=== PATIENT | male | born 1950 | race Caucasian/White ===

== ENCOUNTER 2021-06-05 23:21 | Emergency (ER) | payer OTHER, SELFPAY ==
[2021-06-05 23:26] VITALS: BP 154/63; PULSE 53; RESP 16; TEMP 36.2; O2SAT 99
[2021-06-05 23:38] LABS: Glucose Point of Care 123 mg/dl (65-105)
--- NOTE | 2021-06-06 00:30 | PC.NURSE ---
pt eating peanut butter and crackers and apple juice at this time to stabilize blood sugar.
[2021-06-06 00:39] LABS: Basophils Absolute Auto 0.1 K/mm3 (0.0-0.1); Basophils Percent Auto 0.4 % (0.2-1.2); Eosinophils Absolute Auto 0.1 K/mm3 (0-0.3); Eosinophils Percent Auto 0.5 % (0-4.4); Hemoglobin 11.8 g/dL (14.0-18.0); Immature Granulocyte Absolute 0.22 K/mm3 (0.00-0.031); Immature Granulocyte Percent A 1.3 % (0-0.5); Lymphocytes Absolute Auto 1.71 K/mm3 (0.9-3.2); Lymphocytes Percent Auto 10.2 % (18.3-44.2); Mean Corpuscular HGB Conc 31.9 g/dl (32-36); Mean Corpuscular Hemoglobin 29.1 pg (26-34); Mean Corpuscular Volume 91.4 fl (80-100); Mean Platelet Volume 8.9 fl (7.4-10.4); Monocytes Absolute Auto 0.8 K/mm3 (0.1-0.6); Monocytes Percent Auto 4.5 % (2.6-8.5); Neutrophils Percent Auto 83.1 % (45.5-73.1); Platelet Count Result 315 k/mm3 (150-375); Red Blood Count 4.05 M/mm3 (4.6-6.20); Red Cell Distribution Width 13.4 % (11.5-14.5); White Blood Count 16.8 K/mm3 (4.5-10.0)
--- NOTE | 2021-06-06 00:42 | ED.GENADULT ---
HPI - General Adult General Chief complaint: Recheck/Abnormal Lab/Rx Stated complaint: hypoglycemia Time Seen by Provider: 06/05/21 23:30 History of Present Illness HPI narrative: Patient 71-year-old gentleman who presents the emergency department with chief complaint of hypoglycemia. Patient reports he has history of diabetes and was just discharged from the [facility] the patient was given a dose of insulin prior to leaving and did not eat. The patient went home and the family was getting some food for him to eat and by the time he got back with the food the patient had become minimally responsive and blood sugar was and the 40s. The patient was given p.o. glucose and the patient was still not waking up and his blood sugar was in the 60s and 70s the patient was given glucagon by EMS and the patient regained consciousness and his blood sugar was in the 120s. The patient was brought to the emergency department for close observation patient currently has no other complaints. Review of Systems Review of Systems: Narrative: A 10 system review of systems was completed on the patient and is negative except for what is stated in the HPI. Nursing and ancillary documentation was reviewed. PMFSH Comments Patient has past medical history significant for diabetes Recent urinary tract infection and hospitalization. Social history the patient lives at home with his son and his son's family Exam Narrative: Exam Narrative: GENERAL: Well-appearing, well-nourished, and in no acute distress. HEAD: Normocephalic, atraumatic. EYES: PERRLA and EOMI. ENT: Nares clear, no rhinorrhea or epistaxis. Mucous membranes moist. NECK: Supple. CHEST: Clear to auscultation. No respiratory distress. HEART: Regular rate and rhythm. No murmur heard. Normal peripheral pulses. ABDOMEN: Soft, nontender, nondistended, normal active bowel sounds. EXTREMITIES: Normal range of motion. No edema. SKIN: Warm, dry, no rash. NEURO: No focal deficits. Alert and oriented x3. PSYCH: Normal mood and affect. Course Vital Signs Vital signs: Vital Signs Temperature 36.2 C L 06/05/21 23:26 Pulse Rate 53 L 06/05/21 23:26 Respiratory Rate 16 06/05/21 23:26 Blood Pressure 154/63 H 06/05/21 23:26 Pulse Oximetry 99 06/05/21 23:26 Temperature 36.2 C L 06/05/21 23:26 Pulse Rate 53 L 06/05/21 23:26 Respiratory Rate 16 06/05/21 23:26 Blood Pressure 154/63 H 06/05/21 23:26 Pulse Oximetry 99 06/05/21 23:26 Medical Decision Making Vital Signs Vital Signs: Vital Signs Temperature 36.2 C L 06/05/21 23:26 Pulse Rate 53 L 06/05/21 23:26 Respiratory Rate 16 06/05/21 23:26 Blood Pressure 154/63 H 06/05/21 23:26 Pulse Oximetry 99 06/05/21 23:26 Temperature 36.2 C L 06/05/21 23:26 Pulse Rate 53 L 06/05/21 23:26 Respiratory Rate 16 06/05/21 23:26 Blood Pressure 154/63 H 06/05/21 23:26 Pulse Oximetry 99 06/05/21 23:26 Lab Data Result diagrams: 06/06/21 00:28 06/06/21 00:28 Labs: Lab Results 06/05/21 06/06/21 06/06/21 Range/Units 23:36 00:28 00:28 WBC 16.8 H (4.5-10.0) K/mm3 RBC 4.05 L (4.6-6.20) M/mm3 Hgb 11.8 L (14.0-18.0) g/dL Hct 37.0 L (42.0-52.0) % MCV 91.4 (80-100) fl MCH 29.1 (26-34) pg MCHC 31.9 L (32-36) g/dl RDW 13.4 (11.5-14.5) % Plt Count 315 (150-375) k/mm3 MPV 8.9 (7.4-10.4) fl Immature Gran % (Auto) 1.3 H (0-0.5) % Neut % (Auto) 83.1 H (45.5-73.1) % Lymph % (Auto) 10.2 L (18.3-44.2) % Clark % (Auto) 4.5 (2.6-8.5) % Eos % (Auto) 0.5 (0-4.4) % Baso % (Auto) 0.4 (0.2-1.2) % Lymph # (Auto) 1.71 (0.9-3.2) K/mm3 Clark # (Auto) 0.8 H (0.1-0.6) K/mm3 Eos # (Auto) 0.1 (0-0.3) K/mm3 Baso # (Auto) 0.1 (0.0-0.1) K/mm3 Abs Immat Gran (auto) 0.22 H (0.00-0.031) K/mm3 Absolute Neuts (auto) 14.0 H (1.3-6.7) K/mm3 Absolute Nucleated RBC 0.0 (0.0-0.012) K/mm3 Nucleate
[2021-06-06 00:53] LABS: Alanine Aminotransferase 28 U/L (4-50); Albumin Level 3.8 g/dL (3.5-5.1); Alkaline Phosphatase 69 U/L (38-126); Anion Gap 9 mmol/L (8-16); Aspartate Amino Transferase 42 U/L (17-59); Bilirubin,Total 0.9 mg/dL (0.2-1.3); Blood Urea Nitrogen 32 mg/dL (9-20); Calcium 9.3 mg/dL (8.4-10.2); Carbon Dioxide 23 mmol/L (22-30); Chloride 102 mmol/L (98-107); Estimated CRCL calculation 56 ml/min; Estimated Glomerular Filt Rate 60; Glucose 183 mg/dL (75-110); Potassium 4.9 mmol/L (3.4-5.0); Sodium 134 mmol/L (137-145)
[2021-06-06 01:12] LABS: Glucose Point of Care 175 mg/dl (65-105)
--- NOTE | 2021-06-06 01:14 | PC.NURSE ---
asked pt if he could give us a urine sample. pt states he is unable to go right now and is declining a straight catheter at this time.
--- NOTE | 2021-06-06 02:00 | PC.NURSE ---
pt colostomy bag was leaking. cleaned up patient and put a new one on.
[2021-06-06 02:29] VITALS: BP 164/73; PULSE 61; RESP 16; O2SAT 99
== END 2021-06-06 02:25 | disposition home or self-care (01) ==
PROVIDERS: Emergency Provider Emergency Medicine
DX: E11.649 Type 2 diabetes mellitus with hypoglycemia without coma (principal)
CPT/HCPCS: 36415; 80053; 82948; 85025; 99283